=== PATIENT | female | born 1965 | race Caucasian/White ===

== ENCOUNTER 2019-02-12 06:16 | Inpatient (IN) | payer BC ==
[~2019-02-12] VITALS: Ht 162.6 cm; Wt 55.8 kg
[2019-02-12] MEDS ORDERED: LACTATED RINGERS 1,000 ML IV SCH (06:30)
[2019-02-12] MEDS ORDERED: BUPIVACAINE HCL/EPINEPHRINE 0.5%/0.0005 30ML ONE (06:40)
[2019-02-12] MEDS ORDERED: SKIN ADHESIVE 0.7 GM EA TOP ONE (06:40)
[2019-02-12] MEDS ORDERED: METHYLENE BLUE 50 MG/10 ML AMP IV ONE (06:40)
[2019-02-12] MEDS ORDERED: VASOPRESSIN 20 UNIT/ML 1ML ONE (06:41)
[2019-02-12 07:16] LABS: BASOPHILS % 0.5 % (0.0-2.0); EOSINOPHILS % 3.7 % (0.0-5.0); HEMATOCRIT. 40.2 % (36.0-48.0); HEMOGLOBIN. 13.2 g/dL (12.0-16.0); LYMPHOCYTES % 38.4 % (20.0-50.0); MEAN CORPUSCULAR HEMOGLOBIN 28.6 pg (28.0-32.0); MEAN CORPUSCULAR VOLUME 86.8 fL (81.0-99.0); MEAN PLATELET VOLUME 9.7 fl (7.4-10.4); MONOCYTES % 6.2 % (2.0-8.0); NEUTROPHILS % 51.2 % (40.0-76.0); PLATELET 199 x1000/uL (130-400); RED BLOOD CELL COUNT 4.63 mill/uL (4.2-5.4); RED CELL DISTRIBUTION WIDTH 13.8 % (11.6-14.6)
[2019-02-12 07:20] LABS: CHLORIDE 108 mEq/L (98-107)
[2019-02-12 07:21] LABS: PROTHROMBIN TIME 10.5 sec (9.6-11.0)
[2019-02-12 07:27] LABS: CLARITY URINE CLEAR (CLEAR); COLOR URINE YELLOW (YELLOW); KETONES URINE NEGATIVE (NEGATIVE); LEUKOCYTE ESTERASE URINE NEGATIVE (NEGATIVE); NITRITE URINE NEGATIVE (NEGATIVE); OCCULT BLOOD URINE 2+ (NEGATIVE); PH URINE 7.5 (4.5-8.0); PROTEIN URINE NEGATIVE (NEGATIVE); UROBILINOGEN URINE 0.2 E.U./dL (0.2-1.0)
[2019-02-12 07:38] LABS: UCG SCREEN NEGATIVE
[2019-02-12] MEDS ORDERED: NEOSTIGMINE METHYLSULFATE 1MG/ML 10 ML VIAL ONE (07:39)
[2019-02-12] MEDS ORDERED: FENTANYL CITRATE/PF 50MCG/ML 2ML VIAL ONE (07:39)
[2019-02-12] MEDS ORDERED: ROCURONIUM BROMIDE 10MG/ML VIAL 5ML IV ONE (07:39)
[2019-02-12] MEDS ORDERED: PROPOFOL 200MG/20ML VIAL IV ONE (07:40)
[2019-02-12] MEDS ORDERED: MIDAZOLAM HCL 2 MG/2 ML VIAL ONE (07:40)
[2019-02-12] MEDS ORDERED: GLYCOPYRROLATE 0.2 MG/ML 2ML VIAL ONE (07:40)
[2019-02-12] MEDS ORDERED: HYDROMORPHONE HCL/PF 2MG/ML CPJ IV PRN (08:30)
[2019-02-12] MEDS ORDERED: MEPERIDINE HCL/PF 25MG/ML CPJ IV PRN (08:30)
[2019-02-12] MEDS ORDERED: ONDANSETRON HCL 4MG/2ML INJ IV PRN (08:30)
[2019-02-12] MEDS ORDERED: LABETALOL 5MG/ML SYR 20 MG/4 ML SYRINGE IV PRN (08:30)
[2019-02-12] MEDS ORDERED: FLUO10CA25 PO (08:55)
[2019-02-12] MEDS ORDERED: CHOL200010 PO (08:55)
[2019-02-12] MEDS ORDERED: CALC600T12 PO (08:55)
[2019-02-12] MEDS ORDERED: DEXAMETHASONE 4MG/ML 1ML VIAL ONE (10:01)
[2019-02-12] MEDS ORDERED: HYDROMORPHONE HCL/PF 2MG/ML (OR) ONE (11:17)
[2019-02-12] MEDS ORDERED: CEFAZOLIN SODIUM 1000MG/VIAL ONE (11:17)
[2019-02-12] MEDS ORDERED: SODIUM CHLORIDE 0.9% 10ML VIAL ONE (11:17)
[2019-02-12] MEDS ORDERED: IBUPROFEN 600MG TABLET PO PRN (11:30)
[2019-02-12] MEDS ORDERED: SIMETHICONE 80MG TABLET CHEW PO PRN (11:30)
[2019-02-12] MEDS ORDERED: NALOXONE INJ IV PRN (12:15)
[2019-02-12] MEDS ORDERED: ONDANSETRON INJ IV PRN (12:15)
[2019-02-12] MEDS ORDERED: HYDROMORPHONE PCA 10MG/50ML IV PRN (12:15)
[2019-02-12 14:00] VITALS: BP 130/70
[2019-02-12 16:00] VITALS: BP 110/67
[2019-02-12 20:00] VITALS: BP 98/56
[2019-02-12] MEDS: DOCUSATE SODIUM 100MG CAPSULE PO SCH (20:00)
[2019-02-12] MEDS ORDERED: KETOROLAC 10MG TABLET PO PRN (20:30)
[2019-02-12] MEDS: DEXT 5%/LACTATED RINGERS 1,000 ML IV SCH (20:46)
[2019-02-12] MEDS: IBUPROFEN 800MG TABLET PO PRN (22:32)
[2019-02-13] VITALS: BP 94/54
[2019-02-13 04:00] VITALS: BP 101/51
[2019-02-13] MEDS: DEXT 5%/LACTATED RINGERS 1,000 ML IV SCH ×2 (04:49→17:30)
[2019-02-13] MEDS: IBUPROFEN 800MG TABLET PO PRN ×3 (04:51→18:53)
[2019-02-13 06:24] LABS: BASOPHILS % 0.1 % (0.0-2.0); EOSINOPHILS % 0.1 % (0.0-5.0); HEMATOCRIT. 30.7 % (36.0-48.0); HEMOGLOBIN. 10.2 g/dL (12.0-16.0); LYMPHOCYTES % 17.7 % (20.0-50.0); MEAN CORPUSCULAR HEMOGLOBIN 28.9 pg (28.0-32.0); MEAN CORPUSCULAR VOLUME 86.4 fL (81.0-99.0); MEAN PLATELET VOLUME 9.9 fl (7.4-10.4); MONOCYTES % 7.2 % (2.0-8.0); NEUTROPHILS % 74.9 % (40.0-76.0); PLATELET 147 x1000/uL (130-400); RED BLOOD CELL COUNT 3.55 mill/uL (4.2-5.4); RED CELL DISTRIBUTION WIDTH 13.7 % (11.6-14.6)
[2019-02-13 08:00] VITALS: BP 97/54
[2019-02-13] MEDS: DOCUSATE SODIUM 100MG CAPSULE PO SCH ×2 (08:30→17:29)
[2019-02-13 12:00] VITALS: BP 114/69
[2019-02-13] MEDS ORDERED: CEFAZOLIN SODIUM 1000MG/VIAL IV SCH (12:00)
[2019-02-13] MEDS ORDERED: IOHEXOL-300 100 ML BOTTLE ONE (12:16)
[2019-02-13] MEDS: CEFAZOLIN 2000MG in DEXTROSE 5% WATER 100ML IV SCH ×3 (13:14→23:29)
[2019-02-13 16:00] VITALS: BP 114/69
[2019-02-13 20:00] VITALS: BP 117/69
[2019-02-14] VITALS: BP 116/72
[2019-02-14 04:00] VITALS: BP 109/69
[2019-02-14] MEDS: CEFAZOLIN 2000MG in DEXTROSE 5% WATER 100ML IV SCH (06:08)
[2019-02-14 08:00] VITALS: BP 123/66
[2019-02-14] MEDS: DOCUSATE SODIUM 100MG CAPSULE PO SCH ×2 (09:15→09:19)
[2019-02-14 09:31] VITALS: BP 123/66
== END 2019-02-14 10:03 | disposition home or self-care (01) | DRG 743 ==
LOC: OR 06:16 → 6EST 06:17
PROVIDERS: ADMIT Obstetrics & Gynecology Obstetrics; ATTEND Obstetrics & Gynecology Obstetrics
PROC: 0UT9FZZ Resection of Uterus, Via Natural or Artificial Opening With Percutaneous Endoscopic Assistance (ICD-10-PCS; principal; 2019-02-12)
PROC: 8E0W4CZ Robotic Assisted Procedure of Trunk Region, Percutaneous Endoscopic Approach (ICD-10-PCS; 2019-02-12)
PROC: 0UB60ZZ Excision of Left Fallopian Tube, Open Approach (ICD-10-PCS; 2019-02-12)
PROC: 0UT50ZZ Resection of Right Fallopian Tube, Open Approach (ICD-10-PCS; 2019-02-12)
DX: D25.9 Leiomyoma of uterus, unspecified (principal); N81.4 Uterovaginal prolapse, unspecified; N81.6 Rectocele; R50.82 Postprocedural fever
CPT/HCPCS: 36415; 74178; 80048; 81025; 86592; 86850; 86900; 87340; 87899; 88302; 88307; 93005; J0171; J0690; J1100; J1170; J2250; J2405; J2704; J2710; J3010; J3490; J7060; J7121; Q9967; Q9968